=== PATIENT | female | born 2000 | race Caucasian/White ===

== ENCOUNTER 2024-04-12 11:51 | Emergency (ER) | payer MEDICAID, SELFPAY ==
[2024-04-12 11:52] VITALS: BMI 17.8
[2024-04-12 12:01] VITALS: BP 111/64; PULSE 140; RESP 20; TEMP 36.7; O2SAT 99
[2024-04-12 12:02] VITALS: BMI 18.2
--- NOTE | 2024-04-12 12:24 | PC.NURSE ---
poison control called talked to jovan, they recommend ekg, labs, monitor fo r6hr, no charcoal recommended
--- NOTE | 2024-04-12 12:38 | PC.NURSE ---
poison control called, recommended to to basic labs, toxicology, ekg, iv fuids no charcoal, and monitor for 6 hrs
--- NOTE | 2024-04-12 12:40 | XR_ITS ---
Examination: AP chest single view Technique one AP portable upright chest single view Exam date 9: April 12, 2024 1248 hours INDICATIONS: Overdose today with shortness of breath FINDINGS: Normal heart size. No aspiration pneumonia. Osseous structures are intact No pulmonary edema IMPRESSION: Negative for aspiration pneumonia
--- NOTE | 2024-04-12 12:40 | EKG_ITS ---
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
--- NOTE | 2024-04-12 12:40 | PC.NURSE ---
PT STATES THAT SHE IS STILL FEELING SUICIDAL. PT STATES THAT SHE FEELS LIKE THIS ALL DAY AND HAS DONE THINGS TODAY AND IN THE PAST TO TRY TO HURT SELF. PT HAS HISTORY OF CUTTING AND HAS NEW SUPERFICIAL CUTS TO R LEG. OLD HEALED CUTS NOTED TO LEFT LEG AND BILATERAL ARMS. PT SPEECH SLURRED AT THIS TIME BUT SHE IS ABLE TO ANSWER QUESTIONS APPROPRIATELY. PT DOES REPORT DRINKING ALCOHOL TODAY. PT STATES THAT SHE DRINKS 3-12 PACKS OF BEER WEEKLY. PT REPORTS FEELING DEPRESSED DUE TO PAST FAMILY ISSUES BUT DID NOT WANT TO TALK ABOUT IT. NO AUDITORY OR VISUAL HALLUCINATIONS REPORTED. PT DENIES WANTING TO HURT OTHERS. 1 TO 1 SITTER AT BEDSIDE.
[2024-04-12 12:50] LABS: Collection Type, Urine Clean Catch; Squamous Epithelial Cell,Urine 0 /hpf (0-5)
[2024-04-12 12:55] LABS: Bilirubin,Urine Negative (Negative); Blood,Urine Negative (Negative); Clarity,Urine Clear (Clear/Hazy); Color,Urine Colorless (Lt Yel-Yel); Culture Indicated,Urine Not Indicated; Glucose, Urine Negative (Negative); Ketones,Urine Negative (Negative); Leukocyte Esterase,Urine Negative (Negative); Nitrite,Urine Negative (Negative); PH,Urine 6.5 (5.0-7.0); Protein,Urine Negative (Neg - Trace); RBC,Urine 1 /hpf (0-3); Specific Gravity,Urine 1.004 (1.001-1.035); Urobilinogen,Urine Negative mg/dL (0.0-1.0); WBC,Urine < 1 /hpf (0-5)
[2024-04-12] MEDS: ONDANSETRON INJ 2 MG/ML INJ 2 ML 4 MG IV (12:58)
[2024-04-12] MEDS: SODIUM CHLORIDE 0.9% 1000 ML 1,000 ML 999 ML IV ×2 (12:58→14:03)
[2024-04-12 13:00] LABS: Basophils % (Auto) 0 % (0-2.5); Eosinophils # (Auto) 0.2 Thou/mm3 (0.0-0.5); Eosinophils % (Auto) 2 % (0-10); Hematocrit 39.8 % (36.0-46.0); Hemoglobin 13.5 g/dL (12.0-16.0); Immature Granulocytes % (Auto) 0 % (0-0); Immature Granulocytes Auto 0.02 Thou/mm3 (0.00-0.00); Lymphocytes % (Auto) 30 % (10-50); Mean Corpuscular HGB Conc 33.9 g/dl (31.0-37.0); Mean Corpuscular Hemoglobin 31.1 pg (25.0-35.0); Mean Corpuscular Volume 92 fL (80-100); Monocytes # (Auto) 0.5 Thou/mm3 (0.0-0.8); Monocytes % (Auto) 7 % (0-12); Neutrophils # (Auto) 4.1 Thou/mm3 (1.8-7.7); Neutrophils % (Auto) 60 % (37-80); Nucleated Red Blood Cell % 0 /100 WBC (0); Platelet Count 235 Thou/mm3 (140-440); RDW Standard Deviation 44.4 fL (36.4-46.3); Red Blood Count 4.34 Miln/mm3 (4.00-5.20); White Blood Count 6.8 Thou/mm3 (3.6-11.0)
[2024-04-12 13:05] LABS: Amphetamine/Methamp Scrn,U Negative (Negative); Barbiturate Screen,Urine Negative (Negative); Benzodiazepines Screen,Urine Negative (Negative); Benzoylecgonine Screen, Ur Positive (Negative); Fentanyl Screen,Urine Negative (Negative); Opiate Screen,Urine Negative (Negative); THC Screen,Urine Negative (Negative)
--- NOTE | 2024-04-12 13:07 | EDNOTE_ITS ---
ED Overdose RME/HPI General Chief Complaint: Overdose Stated Complaint: OVERDOSE ON SEROQUEL Time Seen by Provider: 04/12/24 12:01 Arrival date/time: 04/12/24 11:51 RME / HPI RME / HPI Narrative: This section includes all my notes and documentations, including HPI, PE, and ED course.? Bishop Suh MD HPI: 23 year old female presents to the ED brought in by mother for evaluation of overdose today. Patient reports taking 10-15 25mg Seroquel pills in addition to using cocaine and drinking alcohol. Admits to overdosing with intention of killing self. Time of ingestion unknown. Can't obtain history from the patient due to decreased mental status. ROS: Can't obtain from the patient due to decreased mental status. Physical Exam: General: Severely lethargic. Eyes:? Conjunctivae and lids clear.? EOMI. PERRL. ENT:? No nasal congestion.??Patent airway. Neck:? Supple.? Heart:? RRR.? Lungs:? No respiratory distress.? Good air movement.? No rhonchi, wheezing, rales.?? Abdomen:? Soft and nontender.?? Legs:? No clubbing, cyanosis, edema.? Skin:? Warm and dry.?? Neuro: Cranial nerves II to XII grossly normal. No peripheral motor deficits. I reviewed all diagnostic test results. My interpretation of the EKG is?sinus rhythm with no acute ST?T changes. My interpretation of the chest x-ray is no acute findings. Blood tests and urine tests?remarkable for serum alcohol 278.3 and positive UDS for cocaine. At this point, diagnoses include?Seroquel overdose and suicide attempt and alcohol and cocaine intoxication. Treatment here included?Zofran and IV fluid. At 6 PM on 04/12/2024, the care of the patient was transferred to Dr. Chaudhry. Bishop Suh MD Related Data Previous Rx's ?Medication ?Instructions ?Recorded ibuprofen 600 mg tablet 1 tab PO Q8HR PRN INFLAMMATION #30 08/12/16 tabs Allergies Allergy/AdvReac Type Severity Reaction Status Date / Time No Known Allergies Allergy Verified 03/19/23 16:16 Course Quality Measures none Orders Category Date Time Status EKG (ED ONLY) *Do not use* NOW Care 04/12/24 12:40 Completed Saline [Insert IV] NOW Care 04/12/24 12:39 Active Straight [In and Out Catheter] X1 Care 04/12/24 12:39 Completed EKG (ED Only) Stat Exams 04/12/24 12:40 Draft XR chest 1V portable Stat Exams 04/12/24 12:40 Completed Acetaminophen Stat Lab 04/12/24 12:48 Completed Alcohol, Blood Medical Stat Lab 04/12/24 12:48 Completed CBC Stat Lab 04/12/24 12:48 Completed CMP [Comprehensive Metabolic Panel] Stat Lab 04/12/24 12:48 Completed Drug Screen,Urine Stat Lab 04/12/24 12:44 Completed HCG,Qualitative Serum Stat Lab 04/12/24 12:48 Completed Magnesium Stat Lab 04/12/24 12:48 Completed Salicylate Stat Lab 04/12/24 12:48 Completed Troponin I Stat Lab 04/12/24 12:48 Completed UA, C/S IF [Urinalysis, C/S if Indicated] Stat Lab 04/12/24 12:44 Completed Ondansetron Inj [Zofran Inj] Med 04/12/24 12:39 Discontinued 4 mg IV X1 ONE Sodium Chloride 0.9% 1000 ml [Ns] 1,000 ml Med 04/12/24 12:39 Discontinued IV 999 mls/hr Sodium Chloride 0.9% 1000 ml [Ns] 1,000 ml Med 04/12/24 13:49 Discontinued IV 999 mls/hr Vital Signs Vital signs: Vital Signs Temperature 98.0 F 04/12/24 12:01 Pulse Rate 140 H 04/12/24 12:01 Respiratory Rate 20 04/12/24 12:01 Blood Pressure 111/64 04/12/24 12:01 Pulse Oximetry (%) 99 04/12/24 12:01 Oxygen Delivery Method Room Air 04/12/24 12:01 Overdose Patient data External records reviewed:: [facility] previous records Clinical information provided by:: patient and parent Social determinants that could affect healthcare access:: substance use Patient has the following chronic illnesses:: Substance abuse How is presenting disease/condition affected by chronic disease/condition?: exacerbated by Evaluation data The following diagnostics were reviewed and interpreted by me:: lab results, radiology exam(s) and EKG tracing(s) (My interpretation of the EKG: Sinus tachycardia (106 bpm) with no ST-T changes. Bishop Suh MD) Lab and/or radiology exams considered but not ordered:: None Interpretation Summary: Seroquel overdose and alcohol and cocaine intoxication Medications / Prescriptions Medications or Prescriptions considered but not ordered:: None Medication administrations:: Medication Administration History Discontinued Medications Sodium Chloride (Ns) 1,000 mls @ 999 mls/hr IV .Q1H1M ONE Stop: 04/12/24 13:39 Last Infusion: 04/12/24 14:02 Dose: Infused Documented By: Admin: 04/12/24 12:58 Dose: 999 mls/hr Documented By: BRENTON Sodium Chloride (Ns) 1,000 mls @ 999 mls/hr IV .Q1H1M ONE Stop: 04/12/24 14:49 Last Infusion: 04/12/24 16:00 Dose: Infused Documented By: Admin: 04/12/24 14:03 Dose: 999 mls/hr Documented By: BHAVESH Ondansetron HCl (Ondansetron Inj 2 Mg/Ml Inj 2 Ml) 4 mg IV X1 ONE; Protocol Stop: 04/12/24 12:40 Last Admin: 04/12/24 12:58 Dose: 4 mg Documented By: BRENTON IV fluid and Zofran Consultations Consultation(s) initiated? (list below): No Diagnosis Overdose Differential Diagnosis: cocaine intoxication, suicide attempt by multiple drug overdose, poisoning by opiate or related narcotic, drug overdose, acetaminophen overdose and accidental drug ingestion Most likely diagnosis given after review of the tests above:: Seroquel overdose and alcohol and cocaine intoxication Admission Indicated Admission indicated?: not indicated Explain why admission is indicated or not indicated:: Psychiatric service not available here Admission Request Was there a request for admission?: No Disposition Plan Disposition Plan: other (specify) (Care of the patient transferred to Dr. Chaudhry) Discharge Plan Prescriptions/Referrals Prescriptions/Med Rec: No Action ibuprofen 600 MG tablet 1 tab PO Q8HR PRN (Reason: INFLAMMATION) Qty: 30 0RF Referrals: Weston Teixeira MD [Primary Care Provider] - In 1 week Problem List Clinical Impression: Overdose, Suicide attempt, Alcohol intoxication, Cocaine abuse Patient/Caregiver Discharge Instructions Print Language: Latvian
[2024-04-12 13:36] LABS: Acetaminophen < 2.0 mcg/mL (10.0-20.0); Alanine Aminotransferase 15 U/L (10-49); Albumin, Serum 5.2 gm/dL (3.5-5.0); Albumin/Globulin Ratio 1.8 (1.2-2.2); Alcohol, Blood Medical 278.3 mg/dL (0-10.0); Alkaline Phosphatase 104 U/L (46-116); Anion Gap 12 (7-16); Aspartate Amino Transferase 21 U/L (0-34); BUN/Creatinine Ratio 8 Ratio (12-20); Bilirubin,Total 0.6 mg/dL (0.3-1.2); Blood Urea Nitrogen 5 mg/dL (9-23); Calcium 9.7 mg/dL (8.3-10.6); Calcium (Corrected) 9.7 mg/dL (8.5-10.1); Carbon Dioxide 27.4 mMol/L (20.0-31.0); Chloride 104 mMol/L (98-107); Creatinine (Component) 0.6 mg/dL (0.6-1.3); Estimated Creatinine Clearance 125.3 mL/min (>60); Globulin 2.9 gm/dL (2.3-3.5); Glucose 97 mg/dL (74-106); Magnesium 2.2 mg/dL (1.6-2.6); Osmolality,Calculated 282 (275-295); Potassium 3.6 mMol/L (3.4-5.1); Salicylate < 3.0 mg/dL; Sodium 143 mMol/L (136-145); Total Protein 8.1 gm/dL (5.7-8.2); Troponin I < 0.002 ng/mL (0.0-0.045); eGFR > 60 See Note
[2024-04-12 13:49] LABS: HCG,Qualitative Serum Negative
[2024-04-12 14:00] VITALS: BP 112/68; PULSE 98; RESP 13; TEMP 36.7; O2SAT 100
--- NOTE | 2024-04-12 15:08 | PC.NURSE ---
spoke with Vi from poison control. update given. per Vi pt is cleared on their end. Vi recommends to continue to monitor pt till she is at her baseline.
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
--- NOTE | 2024-04-12 16:30 | PC.NURSE ---
PT REQUESTING FOOD. PT GIVEN FOOD AT THIS TIME.
[2024-04-12 17:16] VITALS: BP 128/69; PULSE 112; RESP 18; TEMP 36.6; O2SAT 100
[2024-04-12 18:57] VITALS: BP 126/51; PULSE 100; RESP 10; O2SAT 100
--- NOTE | 2024-04-12 19:00 | PC.NURSE ---
Previous shift left all patient belongings in room. Sitter took all belongings and placed them in locker.
[2024-04-12 20:00] VITALS: BP 102/64; PULSE 101; RESP 17; O2SAT 100
[2024-04-12 21:46] VITALS: BP 114/55; PULSE 108; RESP 18; O2SAT 96
--- NOTE | 2024-04-12 23:17 | PD.EDADDENDU ---
Emergency Room Addendum Addendum Narrative: 1800: Care assumed from Dr. Suh the previous shift emergency physician. Past medical, surgical, social and family history reviewed. Vitals and home medications reviewed. Results and treatment plan discussed. I will assume the care of the patient at this time and will follow the patient, pending crisis evaluation. Please refer to the emergency department record for history and examination from initial visit. Patient was placed in observation for treatment and monitoring of psychiatric symptoms, at 1800 04/12/2024. Symptoms consist of suicidal ideation and depression. Treatment plan includes psychiatric consult, reassessments, and possible placement into psychiatric facility. The patient had access and provided personal hygiene, shower, food, water, and daily medications. 0600: Care signed out to Dr. Suh (emergency physician). Past medical, surgical, social and family history reviewed. Vitals and home medications reviewed. Results and treatment plan discussed. They will assume the care of the patient at this time and will follow the patient, pending crisis evaluation. At this time, observation has ended.
[2024-04-13] VITALS: BP 95/51; PULSE 95; RESP 19; O2SAT 96
[2024-04-13 02:00] VITALS: BP 95/47; PULSE 82; RESP 18; O2SAT 97
[2024-04-13 04:00] VITALS: BP 119/71; PULSE 84; RESP 18; TEMP 36.7; O2SAT 99
[2024-04-13 06:00] VITALS: BP 108/55; PULSE 79; RESP 18; TEMP 36.8; O2SAT 99
--- NOTE | 2024-04-13 07:04 | PD.EDADDENDU ---
Emergency Room Addendum <Britt Lizarraga - Last Filed: 04/13/24 08:43> Addendum Narrative: At 6 AM on 04/13/2024, the care of the patient was transferred from Dr. Chaudhry, see his notes for complete H&P and ED course. I reviewed all diagnostic test results: My interpretation of the EKG is My interpretation of the chest x-ray is Blood tests and urine tests At this point, diagnoses include Treatment here included Significant improvement 0758: Crisis team has evaluated the patient and placed her on a 5150 hold, at this time pending placement to [facility] facility. 0840: Patient has been accepted by Dr. Burrell at [facility]. Bishop Suh MD <Bishop Suh MD - Last Filed: 04/20/24 13:42> Addendum Narrative: At 6 AM on 04/13/2024, the care of the patient was transferred from Dr. Chaudhry, see previous-notes for complete H&P and ED course. 0758: Crisis team evaluated the patient and placed her on a 5150 hold, at this time pending placement to [facility] facility. 0840: Patient accepted by Dr. Burrell at [facility]. Bishop Suh MD
[2024-04-13 07:45] LABS: Alcohol, Blood Medical < 3.0 mg/dL (0-10.0)
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
--- NOTE | 2024-04-13 08:31 | PC.CC ---
Joleen with [facility] provided accepting information, Dr. Burrell, [facility]. Dr. Suh, Nehemias Adame, and WELLINGTON Hoang were provided with discharge plan of patient going to [facility]. ASW arranging transportation.
[2024-04-13 10:00] VITALS: BP 118/22; PULSE 72; RESP 16; TEMP 36.3; O2SAT 100
== END 2024-04-13 12:02 ==
PROVIDERS: Emergency Provider Emergency Medicine; PCP Family Medicine
DX: T43.592A Poisoning by other antipsychotics and neuroleptics, intentional self-harm, initial encounter (principal); F14.10 Cocaine abuse, uncomplicated; F10.129 Alcohol abuse with intoxication, unspecified
CPT/HCPCS: 36415; 71045; 80053; 80307; 80320; 80329; 81001; 83735; 84484; 84703; 85025; 90839; 93005; 96127; 96361; 96374; 99285; J2405; J7030; G0480

== ENCOUNTER 2024-10-12 15:31 | Emergency (ER) | payer MEDICAID, SELFPAY ==
[2024-10-12 15:50] VITALS: BP 119/81; PULSE 84; RESP 18; TEMP 36.9; O2SAT 96; BMI 25.9
--- NOTE | 2024-10-12 16:06 | PD.EDWOUND ---
ED Wound/Laceration-RME/HPI General Chief Complaint: Wound Recheck / Suture Removal Stated Complaint: Incision to right arm and right leg infected Source: patient Arrival date/time: 10/12/24 15:31 24-year-old female with no known medical history presents to the emergency room with a chief complaint of a wound to her right leg. Patient was recently seen at [facility] and discharged had sutures to her right leg. The patient remove the sutures but now states there is discharge, Redness and tenderness. Mode of arrival: ambulatory Limitations: no limitations Related Data Previous Rx's ?Medication ?Instructions ?Recorded ibuprofen 600 mg tablet 1 tab PO Q8HR PRN INFLAMMATION #30 08/12/16 tabs sulfamethoxazole 800 1 tab PO BID #14 tabs 10/12/24 mg-trimethoprim 160 mg tablet (Bactrim DS) Allergies Allergy/AdvReac Type Severity Reaction Status Date / Time No Known Allergies Allergy Verified 10/12/24 15:38 Review of Systems Review of Systems Systems Reviewed: All systems reviewed, normal except as documented Constitutional Constitutional: Reports system reviewed and no additional complaints, except as documented, Denies fatigue, Denies fever(s), Denies headache(s) and Denies weakness Eyes Eyes: Reports system reviewed and no additional complaints, except as documented, Denies blurry vision and Denies change in vision ENT Ears, Nose, Mouth, and Throat: Reports system reviewed and no additional complaints, except as documented, Denies otalgia, Denies headache(s), Denies nasal congestion, Denies throat swelling and Denies vertigo Cardiovascular Cardiovascular: Reports system reviewed and no additional complaints, except as documented, Denies chest pain, Denies dyspnea and Denies dyspnea on exertion Respiratory Respiratory: Reports system reviewed and no additional complaints, except as documented, Denies chest congestion, Denies cough, Denies dyspnea, Denies dyspnea on exertion and Denies wheezing Gastrointestinal Gastrointestinal: Reports system reviewed and no additional complaints, except as documented, Denies abdominal pain, Denies cramping, Denies nausea and Denies vomiting Genitourinary Genitourinary: Reports system reviewed and no additional complaints, except as documented Musculoskeletal Musculoskeletal: Reports system reviewed and no additional complaints, except as documented and Denies back pain Integumentary/Breasts Skin/Breast: Reports system reviewed and no additional complaints, except as documented and Reports wounds Neurologic Neurologic: Reports system reviewed and no additional complaints, except as documented, Denies confusion, Denies headache(s), Denies lack of coordination, Denies vertigo and Denies weakness Psychiatric Psychiatric: Reports system reviewed and no additional complaints, except as documented, Denies anxiety, Denies confusion, Denies depression, Denies paranoia, Denies suicidal ideation and Denies tactile hallucinations Endocrine Endocrine: Reports system reviewed and no additional complaints, except as documented and Denies fatigue Hematologic/Lymphatic Hematologic/Lymphatic: Reports system reviewed and no additional complaints, except as documented and Denies lymphadenopathy Allergic/Immunologic Allergic/Immunologic: Reports system reviewed and no additional complaints, except as documented, Denies throat swelling, Denies urticaria and Denies wheezing Past Medical History Past Medical History CARDIAC: Negative Cardiac Disorders or Congestive Heart Failure RESPIRATORY: Negative Chronic Obstructive Pulmonary Disease (COPD) or Asthma GENITOURINARY: Negative Renal Disease ENDOCRINE: Negative Diabetes Mellitus Type 1 or Diabetes Mellitus Type 2 HEMATOLOGIC: Negative Sickle Cell Disease Social History SMOKING STATUS: Current every day smoker ED Exam General Limitations: Present no limitations General appearance: Present alert and in no apparent distress Head Head exam: Present atraumatic Eye Eye exam: Present normal appearance, PERRL and EOMI ENT ENT exam: Present normal exam, normal oropharynx and mucous membranes moist Neck Neck exam: Present normal inspection, full ROM and trachea midline Chest Chest inspection: Present normal inspection and symmetric chest wall rise Respiratory Respiratory exam: Present normal lung sounds bilaterally Cardiovascular Cardiovascular exam: Present regular rate, normal rhythm and normal heart sounds Abdominal Exam Abdominal exam: Present soft and normal bowel sounds Extremities Exam Extremities exam: Present normal inspection and full ROM Expanded Lower Extremity Exam Hip/Pelvis exam: Present normal inspection Upper leg exam: Present normal inspection Leg image:  1. Tenderness erythema swelling and warmth to the touch Knee exam: Present normal inspection Lower leg exam: Present tenderness, laceration and erythema Back Exam Back exam: Present normal inspection and full ROM Neurological Exam Neurological exam: Present alert, oriented X3 and CN II-XII intact Psychiatric Psychiatric exam: Present normal affect and normal mood Skin Skin exam: Present warm, dry, intact and normal color Course Quality Measures none Vital Signs Vital signs: Vital Signs Temperature 98.4 F 10/12/24 15:50 Pulse Rate 84 10/12/24 15:50 Respiratory Rate 18 10/12/24 15:50 Blood Pressure 119/81 10/12/24 15:50 Pulse Oximetry (%) 96 10/12/24 15:50 Oxygen Delivery Method Room Air 10/12/24 15:50 Wound / Laceration MDM Narrative MDM Narrative:: 24-year-old female with no known medical history presents to the emergency room with a chief complaint of a wound to her right leg. Patient was recently seen at [facility] and discharged had sutures to her right leg. The patient remove the sutures but now states there is discharge, Redness and tenderness. Patient is hemodynamically stable and in no apparent distress. She is not tachycardic and not tachypneic and is afebrile Physical examination shows cellulitis to the right leg. Patient states she had sutures placed due to a laceration. The patient removed her own sutures. Today the patient has erythema, swelling, tenderness, drainage from the old laceration site. Antibiotics were sent to the patient's pharmacy Patient was discharged and educated to follow-up with primary care provider in the next 24 to 48 hours and return to the emergency room for any evidence of worsening signs or symptoms Patient data External records reviewed:: [facility] previous records Clinical information provided by:: patient Social determinants that could affect healthcare access:: none Patient has the following chronic illnesses:: No chronic illness How is presenting disease/condition affected by chronic disease/condition?: no chronic disease Evaluation data The following diagnostics were reviewed and interpreted by me:: lab results and radiology exam(s) Lab and/or radiology exams considered but not ordered:: Labs and radiology exams considered and ordered Interpretation Summary: N/A Medications / Prescriptions Medications or Prescriptions considered but not ordered:: Medication given Medication administrations:: Rx given Consultations Consultation(s) initiated? (list below): No Diagnosis Wound Differential Diagnosis: laceration, abscess, abrasion and other (Cellulitis) Most likely diagnosis given after review of the tests above:: Cellulitis Admission Indicated Admission indicated?: not indicated Admission Request Was there a request for admission?: No Disposition Plan Disposition Plan: Discharge Discharge Attestation Discharge Attestation: The patient and all family members were given an opportunity to ask questions and understood the discharge instructions. Discharge instructions specifically effects, indications for sooner follow up or return to the emergency department, and the expected course of current diagnosis. Patient condition: Stable Discharge Plan Plan Patient Disposition: HOME (Self Care) Discharge Disposition comment: Stable Prescriptions/Referrals Prescriptions/Med Rec: New sulfamethoxazole-trimethoprim [Bactrim DS] 800-160 mg tablet 1 tab PO BID Qty: 14 0RF No Action ibuprofen 600 MG tablet 1 tab PO Q8HR PRN (Reason: INFLAMMATION) Qty: 30 0RF Problem List Clinical Impression: Infection involving suture Patient/Caregiver Discharge Instructions Education Materials: Preventing Surgical Site Infections Additional Instructions: Please follow-up with your primary care provider in the next 24 to 48 hours Antibiotics are sent to your pharmacy please pick them up and take them as indicated For any evidence of worsening signs or symptoms return to the emergency room immediately Print Language: Indonesian Stand Alone Forms: Rashida Award Info., Patient Portal Info Letter PA/[employer] M[employer] OPERATOR Supervising Physician PA/MAGNESI[employer] M[employer] OPERATOR Supervising Physician: Dr. Dotson
== END 2024-10-12 16:20 | disposition home or self-care (01) ==
LOC: SERX 16:21
PROVIDERS: Emergency Provider Emergency Medicine; PCP Physician Assistant Medical
DX: T81.41XA Infection following a procedure, superficial incisional surgical site, initial encounter (principal); B99.8 Other infectious disease
CPT/HCPCS: 99283

== ENCOUNTER 2024-10-24 12:57 | Emergency (ER) | payer MEDICAID, SELFPAY ==
[2024-10-24 12:57] VITALS: BMI 25.8
[2024-10-24 13:04] VITALS: BP 134/87; PULSE 80; RESP 18; TEMP 36.5; O2SAT 98
--- NOTE | 2024-10-24 14:13 | EDNOTE_ITS ---
ED General RME/HPI General Chief complaint: General Adult/Misc Complain Stated complaint: STEPPED ON NAIL 8 DAYS AGO; JAW IS LOCKING UP Time Seen by Provider: 10/24/24 14:11 Arrival date/time: 10/24/24 12:57 Limitations: no limitations RME / HPI RME / HPI narrative: Patient is a 24-year-old female who is here today with jaw soreness. She denies any impact injury to her face. She states she stepped on a nail about a week ago. She denies any chronic medical conditions. She has no redness or swelling on her foot. Stepped on a nail 4-5 days ago. Has mild jaw soreness. She has no fevers or chills. No chest pain, Juan Francisco pain, nausea, vomiting. No myalgias. She has no other acute complaints. Related Data Previous Rx's ?Medication ?Instructions ?Recorded ibuprofen 600 mg tablet 1 tab PO Q8HR PRN INFLAMMATI ON #30 08/12/16 tabs sulfamethoxazole 800 1 tab PO BID #14 tabs mg-trimethoprim 160 mg tablet (Bactrim DS) naproxen 500 mg tablet 500 mg PO BID #10 tabs 10/24 Allergies Allergy/AdvReac Type Severity Reaction Status Date / Time No Known Allergies Allergy Verified 10/24/24 13:00 Review of Systems Review of Systems Systems Reviewed: All systems reviewed, normal except as documented ED Exam General Limitations: Present no limitations General appearance: Present alert and in no apparent distress Head Head exam: Present atraumatic Eye Eye exam: Present normal appearance, PERRL and EOMI ENT ENT exam: Present normal exam, normal oropharynx, mucous membranes moist and other (No tenderness of the TMJ or crepitus. Patient can open her jaw fully puller there is no trismus.) Neck Neck exam: Present normal inspection, full ROM and trachea midline Chest Chest inspection: Present normal inspection and symmetric chest wall rise Respiratory Respiratory exam: Present normal lung sounds bilaterally Cardiovascular Cardiovascular exam: Present regular rate, normal rhythm and normal heart sounds Extremities Exam Extremities exam: Present normal inspection and full ROM Back Exam Back exam: Present normal inspection and full ROM Neurological Exam Neurological exam: Present alert and oriented X3 Psychiatric Psychiatric exam: Present normal affect and normal mood Skin Skin exam: Present warm, dry, intact, normal color and other (No puncture wounds, erythema, induration, or fluctuance is appreciated.) Course Quality Measures none Orders Category Date Time Status TET,DIP/PERT AC (Adult)-Tdap [Boostrix Adult (Tdap) Med 10/24/24 14:12 Discontinued Vacc] 0.5 ml IMI .ONCE ONE Vital Signs Vital signs: Vital Signs Temperature 97.7 F 10/24/24 13:04 Pulse Rate 80 10/24/24 13:04 Respiratory Rate 18 10/24/24 13:04 Blood Pressure 134/87 H 10/24/24 13:04 Pulse Oximetry (%) 98 10/24/24 13:04 Oxygen Delivery Method Room Air 10/24/24 13:04 Discharge Plan Plan Patient Disposition: HOME (Self Care) Patient condition on transfer: Stable Prescriptions/Referrals Prescriptions/Med Rec: New naproxen 500 mg tablet 500 mg PO BID Qty: 10 0RF No Action ibuprofen 600 MG tablet 1 tab PO Q8HR PRN (Reason: INFLAMMATION) Qty: 30 0RF sulfamethoxazole-trimethoprim [Bactrim DS] 800-160 mg tablet 1 tab PO BID Qty: 14 0RF Problem List Clinical Impression: Jaw pain, non-TMJ Patient/Caregiver Discharge Instructions Education Materials: Medicine for Pain Additional Instructions: - Use naproxen twice daily as prescribed. - Follow-up with your primary clinic within the next 1 to 2 weeks. - Return to the emergency room as needed for any worsening or emergent changes. Print Language: Mexican Stand Alone Forms: [employer] Award Info., Patient Portal Info Letter MDM Narrative [facility] hospital course: Patient is a 24-year-old female who is here today with jaw soreness. She denies any impact injury to her face. She states she stepped on a nail about a week ago. She denies any chronic medical conditions. She has no redness or swelling on her foot. Stepped on a nail 4-5 days ago. Has mild jaw soreness. She has no fevers or chills. No chest pain, Juan Francisco pain, nausea, vomiting. No myalgias. She has no other acute complaints. On exam, patient is nontoxic-appearing no visible signs distress. Vital signs are stable. Examination of the plantar surface of the bilateral feet revealed no open wounds, induration, or fluctuance. Patient has full range of motion of her jaw and is speaking without difficulty. She does not recall her last tetanus shot. Her tetanus will be updated here. She will place on a 5-day course of naproxen. She is asked to follow-up with her primary doctor. Return here as needed for any worsening changes. Clinical Information Provided by patient Medical Records Reviewed None Meds/Rx Considered, not Ordered None Labs/Rad/Tests considered, not Ordered None Chronic Illness/Social Conditions which may negatively complicate care or outcome(s)-explain: None or not applicable Lab Interpretation Labs: none Imaging Imaging interpretation: none Medication Administration(s) Medication Administration History Discontinued Medications Diphtheria/Tetanus/Acell Pertussis (Diphth,Pertuss(Acell),Tet Vac 0.5 Ml Syr- Adult) 0.5 ml IMi .ONCE ONE Stop: 10/24/24 14:13 See above Dispositon Disposition: Discharge Home
[2024-10-24] MEDS: DIPHTH,PERTUSS(ACELL),TET VAC 0.5 ML SYR- ADULT IMi (14:30)
== END 2024-10-24 14:47 | disposition home or self-care (01) ==
LOC: SERX 15:10
PROVIDERS: Emergency Provider Physician Assistant Medical
DX: R68.84 Jaw pain (principal); Z23 Encounter for immunization
CPT/HCPCS: 90471; 90715; 99282

== ENCOUNTER 2025-03-01 07:21 | Emergency (ER) | payer MEDICAID, SELFPAY ==
[2025-03-01 07:22] VITALS: BMI 25.8
[2025-03-01 07:54] VITALS: BP 130/68; PULSE 120; RESP 18; TEMP 37.5; O2SAT 98
--- NOTE | 2025-03-01 07:54 | XR_ITS ---
EXAMINATION: AP chest single view TECHNIQUE: AP portable upright chest single view Date and time: March 01, 2025, 0840 hours INDICATIONS: Cardiac palpitations and vomiting blood beginning 3 days ago FINDINGS: Normal heart size No aspiration pneumonia Osseous structures are intact No pulmonary edema IMPRESSION: No active disease
--- NOTE | 2025-03-01 07:54 | EKG_ITS ---
[facility] Test Date: 2025-03-01 Pat Name: SOCO SANTOS Department: Room: - Gender: Female Resort Host: : [id number] Requested By: Marco Madrid Order Number: [id number] Reading MD: Marco Madrid Measurements Intervals Roby Rate: 120 P: -55 HI: 141 QRS: 87 QRSD: 88 T: 57 QT: 307 QTc: 434 Interpretive Statements ECTOPIC ATRIAL TACHYCARDIA ABNORMAL RHYTHM ECG Compared to ECG 04/12/2024 13:22:14 Sinus tachycardia no longer present /store/S0/[id number]/[id number].pdf
--- NOTE | 2025-03-01 07:55 | PD.EDRME ---
Rapid Medical Screening Exam RME Arrival date/time: 03/01/25 07:21 24-year-old female with no known medical history presents to the emergency room with a chief complaint of palpitations, and vomiting blood x 3 days. Patient states she is currently withdrawing from alcohol. Patient states she drinks about 1/5 of a bottle of vodka a day. Patient states her last alcoholic drink was 4 hours ago. I have greeted and performed a focused initial assessment of this patient. A comprehensive ED assessment and evaluation of the patient, analysis of all test results, and completion of the medical decision making process will be conducted by additional ED providers. Chief Complaint: Alcohol Time Seen by Provider: 03/01/25 07:31 Vital signs reviewed by provider: Yes Exam: Strong and regular rhythm. S1 and S2 no JVD no murmurs no gallops no clicks Clear bilateral lung sounds Clinical Impression: Alcohol withdrawals/electrolyte imbalance/upper GI bleed
[2025-03-01 08:18] VITALS: BP 142/88; PULSE 108; RESP 15; TEMP 37.2; O2SAT 99
--- NOTE | 2025-03-01 08:40 | PD.EDALCOH ---
ED Alcohol RME/HPI General Chief Complaint: Alcohol Stated Complaint: ALCOHOL WITHDRAWAL/VOMITING BLOOD Time Seen by Provider: 03/01/25 07:31 Arrival date/time: 03/01/25 07:21 Limitations: no limitations RME / HPI RME / HPI narrative: 03/01/25 07:21 24-year-old female with no known medical history presents to the emergency room with a chief complaint of palpitations, and vomiting blood x 3 days. Patient states she is currently withdrawing from alcohol. Patient states she drinks about 1/5 of a bottle of vodka a day. Patient states her last alcoholic drink was 4 hours ago. I have greeted and performed a focused initial assessment of this patient. A comprehensive ED assessment and evaluation of the patient, analysis of all test results, and completion of the medical decision making process will be conducted by additional ED providers. DR. MICHELE MAIN ED EVALUATION: 24 year old female with history of bipolar disorder on Seroquel, alcoholism, drinks both beer and a fifth of vodka daily, presents to the ED for evaluation of feeling shaky, nausea, and vomiting beginning 4 days ago. Today noticed the vomit to be a dark brown material which concerned her. Admits to last drinking alcohol 3 hours prior to arrival. No associated diarrhea. Social hx: +cocaine use, +alcohol use Exam: Strong and regular rhythm. S1 and S2 no JVD no murmurs no gallops no clicks Clear bilateral lung sounds Impression: Alcohol withdrawals/electrolyte imbalance/upper GI bleed Related Data Previous Rx's ?Medication ?Instructions ?Recorded ibuprofen 600 mg tablet 1 tab PO Q8HR PRN INFLAMMATION #30 08/12/16 tabs sulfamethoxazole 800 1 tab PO BID #14 tabs 10/12/24 mg-trimethoprim 160 mg tablet (Bactrim DS) naproxen 500 mg tablet 500 mg PO BID #10 tabs 10/24/24 chlordiazepoxide HCl 25 mg capsule 25 mg PO Q8H PRN agitation #18 caps 03/01/25 chlordiazepoxide HCl 25 mg capsule 25 mg PO Q8H PRN alcohol 03/01/25 withdrawal #14 caps ondansetron HCl 4 mg tablet 4 mg PO Q8H 5 days #20 tabs 03/01/25 pantoprazole 40 mg tablet,delayed 40 mg PO QDAY #30 tabs 03/01/25 release (Protonix) Allergies Allergy/AdvReac Type Severity Reaction Status Date / Time No Known Allergies Allergy Verified 03/01/25 07:25 Review of Systems Review of Systems Systems Reviewed: All systems reviewed, normal except as documented Past Medical History Past Medical History RESPIRATORY: Positive Asthma PSYCHO/SOCIAL: Positive Bipolar Disorder Social History SMOKING STATUS: Current every day smoker ED Exam General Limitations: Present no limitations General appearance: Present alert and in no apparent distress Head Head exam: Present atraumatic, normocephalic and normal inspection Eye Eye exam: Present normal appearance, PERRL and EOMI ENT ENT exam: Present normal exam, normal oropharynx and mucous membranes moist Neck Neck exam: Present normal inspection, full ROM and trachea midline Chest Chest inspection: Present normal inspection and symmetric chest wall rise Respiratory Respiratory exam: Present normal lung sounds bilaterally Cardiovascular Cardiovascular exam: Present regular rate, normal rhythm and normal heart sounds Abdominal Exam Abdominal exam: Present soft and normal bowel sounds Extremities Exam Extremities exam: Present full ROM and other (Patient has scars on her upper extremities from previous suicide attempts ) Back Exam Back exam: Present normal inspection and full ROM Neurological Exam Neurological exam: Present alert, oriented X3 and CN II-XII intact Psychiatric Psychiatric exam: Present normal affect and normal mood Skin Skin exam: Present warm, dry, intact and normal color Course Course Course Narrative: Patient labs came back unremarkable CAT scan of the abdomen pelvis showed no evidence of GI bleed Patient did not have any vomiting during her stay in the ER She had no black stools Was no evidence of active GI bleeding Patient was given phenobarb 10 mg IV Patient had no major side effects or withdrawal symptoms during stay in the ER She does not qualify for admission However she said that she would stop drinking I asked her to call her mother to pick her up and she will be given prescription for the Librium Her CAT scan only showed presence of gastritis She was given the first dose of Protonix IV x 1 She will be given Protonix also once a day for 1 g each for the next 30 days Also give her Zofran for the nausea and Librium 20 mg 3 times a day as needed Patient was discharged good condition There was no evidence of active GI bleed Vital signs were normal O2 saturation was normal Diagnosis Alcohol gastritis Vomiting Mild to moderate withdrawal symptoms of alcohol Plan As above Quality Measures none Orders Category Date Time Status CT Screening NOW Care 03/01/25 08:[address] Screening NOW Care 03/01/25 10:55 Completed EKG (ED ONLY) *Do not use* NOW Care 03/01/25 07:[address] angio abdomen pelvis Stat Exams 03/01/25 10:54 Completed EKG (ED Only) Stat Exams 03/01/25 07:54 Draft XR chest 1V portable Stat Exams 03/01/25 07:54 Completed Alcohol, Blood Medical Stat Lab 03/01/25 08:27 Completed B-Type Natriuretic Peptide Stat Lab 03/01/25 08:27 Completed Beta HCG,Quantitative Stat Lab 03/01/25 08:27 Completed CBC Stat Lab 03/01/25 08:27 Completed Comprehensive Metabolic Panel Stat Lab 03/01/25 08:27 Completed Drug Screen,Urine Stat Lab 03/01/25 08:24 Completed Free T4 (Free Thyroxine) Stat Lab 03/01/25 08:27 Completed Magnesium Stat Lab 03/01/25 08:27 Completed Partial Thromboplastin Time Stat Lab 03/01/25 08:27 Completed Prothrombin Time with INR Stat Lab 03/01/25 08:27 Completed TSH [Thyroid Stimulating Hormone] Stat Lab 03/01/25 08:27 Completed Troponin I Stat Lab 03/01/25 08:27 Completed Urinalysis, C/S if Indicated Stat Lab 03/01/25 08:24 Completed Dextrose 5%-Lactated Ringers [D5-Lr] 1,000 ml Med 03/01/25 08:36 Discontinued IV 1,000 mls/hr Ondansetron Odt [Zofran Odt] Med 03/01/25 07:54 Discontinued 4 mg PO X1 ONE PHENobarbital Inj 300 mg Med 03/01/25 13:49 Ordered Sodium Chloride 0.9% Flush [NS Flush] 12 ml IVP X1 Pantoprazole Inj [Protonix Inj] Med 03/01/25 13:52 Once 80 mg IVP X1 ONE Reevaluation(s) Time: 13:55 Vital Signs Vital signs: Vital Signs Temperature 99.5 F 03/01/25 07:54 Pulse Rate 120 H 03/01/25 07:54 Respiratory Rate 18 03/01/25 07:54 Blood Pressure 130/68 03/01/25 07:54 Pulse Oximetry (%) 98 03/01/25 07:54 Oxygen Delivery Method Room Air 03/01/25 07:54 Pulse ox is 98% on room air which is adequate. Discharge Plan Plan Patient Disposition: HOME (Self Care) Patient condition on transfer: Stable Prescriptions/Referrals Prescriptions/Med Rec: New pantoprazole [Protonix] 40 mg tablet,delayed release (DR/EC) 40 mg PO QDAY Qty: 30 0RF ondansetron HCl 4 mg tablet 4 mg PO Q8H 5 Days Qty: 20 0RF chlordiazepoxide HCl 25 mg capsule 25 mg PO Q8H PRN (Reason: alcohol withdrawal) Qty: 14 0RF chlordiazepoxide HCl 25 mg capsule 25 mg PO Q8H PRN (Reason: agitation) Qty: 18 0RF No Action ibuprofen 600 MG tablet 1 tab PO Q8HR PRN (Reason: INFLAMMATION) Qty: 30 0RF sulfamethoxazole-trimethoprim [Bactrim DS] 800-160 mg tablet 1 tab PO BID Qty: 14 0RF naproxen 500 mg tablet 500 mg PO BID Qty: 10 0RF Referrals: Caitie Bucio PA-C [Primary Care Provider] - In 1 week Problem List Clinical Impression: Alcohol withdrawal syndrome Patient/Caregiver Discharge Instructions Discharge Activity: resume usual activities Education Materials: Alcohol Withdrawal: What to Expect Print Language: Moroccan Stand Alone Forms: [employer] Award Info., Patient Portal Info Letter Alcohol MDM Narrative MDM Narrative: Britt Brown am scribing for and in the presence of Dr. Michele. 24 year old female with history of bipolar disorder on Seroquel, alcoholism, drinks both beer and a fifth of vodka daily, presents to the ED for evaluation of feeling shaky, nausea, and vomiting beginning 4 days ago. Today noticed the vomit to be a dark brown material which concerned her. Assessment: Suspected alcohol withdrawal Dark brown emesis likely represents gastritis?related material; active GI bleeding is considered though unlikely at this time Risk related to polysubstance use Plan: Phenobarbital for alcohol withdrawal management Zofran IV fluids CT angio of the abdomen to assess for possible bleeding source given reported dark emesis Patient data External records reviewed:: [facility] previous records Clinical information provided by:: patient Social determinants that could affect healthcare access:: alcohol use Patient has the following chronic illnesses:: bipolar disorder on Seroquel, alcoholism, drinks both beer and a fifth of vodka daily How is presenting disease/condition affected by chronic disease/condition?: exacerbated by Evaluation data The following diagnostics were reviewed and interpreted by me:: lab results, radiology exam(s) and EKG tracing(s) (EKG @ 08:05 AM, interpreted by me, atrial tachycardia, rate 120, no acute ST or Twave changes, no STEMI. ) Lab and/or radiology exams considered but not ordered:: None Interpretation Summary: Ordering Physician: Marco Drummond Date of Service: 03/01/25 Procedure(s): XR chest 1V portable Accession Number(s): [id number] cc: Caitie Bucio PA-C; Marco DrummondP; Nba Jarrett MD~ EXAMINATION: AP chest single view TECHNIQUE: AP portable upright chest single view Date and time: March 01, 2025, 0840 hours INDICATIONS: Cardiac palpitations and vomiting blood beginning 3 days ago FINDINGS: Normal heart size No aspiration pneumonia Osseous structures are intact No pulmonary edema IMPRESSION: No active disease Dictated By: Nba Jarrett MD Signed By: <Electronically signed by Nba Jarrett MD in OV> 03/01/25 0916 Medications / Prescriptions Medications or Prescriptions considered but not ordered:: None Medication administrations:: Medication Administration History Phenobarbital Sodium 300 mg/ (Sodium Chloride 12 ml) 0 mg IVP X1 ONE Stop: 03/01/25 13:50 Discontinued Medications Dextrose/Lactated Ringer's (D5-Lr) 1,000 mls @ 1,000 mls/hr IV .Q1H ARYAN Stop: 03/01/25 10:40 Last Admin: 03/01/25 11:52 Dose: Not Given Documented By: EF Non-Admin Reason: Cancelled by Provider Admin: 03/01/25 11:38 Dose: 1,000 mls/hr Documented By: Infusion: 03/01/25 10:20 Dose: Infused Documented By: Admin: 03/01/25 08:57 Dose: 1,000 mls/hr Documented By: EF Ondansetron HCl (Ondansetron Odt 4 Mg Tabrap) 4 mg PO X1 ONE; Protocol Stop: 03/01/25 07:55 Last Admin: 03/01/25 08:57 Dose: 4 mg Documented By: EF See above Consultations Consultation(s) initiated? (list below): Yes Diagnosis Most likely diagnosis given after review of the tests above:: Alcohol withdrawal syndrome Admission Indicated Admission indicated?: indicated Admission Request Was there a request for admission?: Yes Admission Attestation Admission request attestation: Discussed case with [] from Hospitalist service regarding admission. Discussed patients ED course, exam findings, labs, and radiology results. The Hospitalist [agrees,declines] to accept the patient for admission. Disposition Plan Disposition Plan: Discharge Discharge Attestation Discharge Attestation: The patient and all family members were given an opportunity to ask questions and understood the discharge instructions. Discharge instructions specifically effects, indications for sooner follow up or return to the emergency department, and the expected course of current diagnosis. Patient condition: Stable
[2025-03-01 08:46] LABS: Collection Type, Urine Clean Catch
[2025-03-01 08:54] LABS: Basophils # (Auto) 0.1 Thou/mm3 (0.0-0.2); Basophils % (Auto) 1 % (0-2.5); Eosinophils # (Auto) 0.2 Thou/mm3 (0.0-0.5); Eosinophils % (Auto) 2 % (0-10); Hematocrit 43.0 % (36.0-46.0); Hemoglobin 14.6 g/dL (12.0-16.0); Immature Granulocytes Auto 0.04 Thou/mm3 (0.00-0.00); Lymphocytes # (Auto) 2.1 Thou/mm3 (1.0-4.8); Lymphocytes % (Auto) 18 % (10-50); Mean Corpuscular HGB Conc 34.0 g/dl (31.0-37.0); Mean Corpuscular Hemoglobin 31.9 pg (25.0-35.0); Mean Corpuscular Volume 94 fL (80-100); Monocytes # (Auto) 1.1 Thou/mm3 (0.0-0.8); Monocytes % (Auto) 9 % (0-12); Neutrophils # (Auto) 8.5 Thou/mm3 (1.8-7.7); Neutrophils % (Auto) 71 % (37-80); Nucleated Red Blood Cell # 0.00 Thou/mm3 (0.00-0.00); Nucleated Red Blood Cell % 0 /100 WBC (0); Platelet Count 399 Thou/mm3 (140-440); RDW Standard Deviation 44.4 fL (36.4-46.3); Red Blood Count 4.57 Miln/mm3 (4.00-5.20); White Blood Count 12.0 Thou/mm3 (3.6-11.0)
[2025-03-01] MEDS: DEXTROSE 5%-LACTATED RINGERS 1,000 ML 1000 ML IV ×2 (08:57→11:38)
[2025-03-01] MEDS: ONDANSETRON ODT 4 MG TABRAP PO (08:57)
[2025-03-01 09:13] LABS: Alanine Aminotransferase 22 U/L (10-49); Albumin, Serum 5.2 gm/dL (3.5-5.0); Albumin/Globulin Ratio 1.7 (1.2-2.2); Alcohol, Blood Medical 214.4 mg/dL (0-10.0); Alkaline Phosphatase 99 U/L (46-116); Anion Gap 14 (7-16); Aspartate Amino Transferase 31 U/L (0-34); BUN/Creatinine Ratio 8 Ratio (12-20); Bilirubin,Total 0.8 mg/dL (0.3-1.2); Blood Urea Nitrogen 6 mg/dL (9-23); Calcium 9.6 mg/dL (8.3-10.6); Calcium (Corrected) 9.6 mg/dL (8.5-10.1); Carbon Dioxide 24.4 mMol/L (20.0-31.0); Chloride 104 mMol/L (98-107); Creatinine (Component) 0.8 mg/dL (0.6-1.3); Estimated Creatinine Clearance 118.4 mL/min (>60); Free T4 (Free Thyroxine) 1.35 ng/dL (0.89-1.76); Globulin 3.0 gm/dL (2.3-3.5); Glucose 90 mg/dL (74-106); Magnesium 2.2 mg/dL (1.6-2.6); Osmolality,Calculated 280 (275-295); Potassium 4.1 mMol/L (3.4-5.1); Sodium 142 mMol/L (136-145); Thyroid Stimulating Hormone 1.58 uIU/mL (0.55-4.78); Total Protein 8.2 gm/dL (5.7-8.2); Troponin I < 0.002 ng/mL (0.0-0.045); eGFR > 60 See Note
[2025-03-01 09:32] LABS: INR 1.0 (0.9-1.3); Partial Thromboplastin Time 30.6 Seconds (22.0-36.0); Prothrombin Time 10.4 Seconds (9.0-12.2)
[2025-03-01 09:35] VITALS: BP 117/70; PULSE 112; RESP 18; TEMP 37.1; O2SAT 100
[2025-03-01 09:51] LABS: Bilirubin,Urine Negative (Negative); Blood,Urine 2+ (Negative); Clarity,Urine Turbid (Clear/Hazy); Color,Urine Lt-Yellow (Lt Yel-Yel); Culture Indicated,Urine Not Indicated; Glucose, Urine Negative (Negative); Hyaline Casts,Urine < 1 /hpf (0-1); Ketones,Urine 1+ (Negative); Leukocyte Esterase,Urine Negative (Negative); Nitrite,Urine Negative (Negative); PH,Urine 6.0 (5.0-7.0); Protein,Urine Trace (Neg - Trace); RBC,Urine 6 /hpf (0-3); Specific Gravity,Urine 1.013 (1.001-1.035); Squamous Epithelial Cell,Urine 8 /hpf (0-5); Urobilinogen,Urine Negative mg/dL (0.0-1.0); WBC,Urine 4 /hpf (0-5)
[2025-03-01 09:55] LABS: B-Type Natriuretic Peptide < 20 pg/mL (0-100)
[2025-03-01 09:58] LABS: Amphetamine/Methamp Scrn,U Negative (Negative); Barbiturate Screen,Urine Negative (Negative); Benzodiazepines Screen,Urine Negative (Negative); Benzoylecgonine Screen, Ur Positive (Negative); Fentanyl Screen,Urine Negative (Negative); Opiate Screen,Urine Negative (Negative); THC Screen,Urine Negative (Negative)
--- NOTE | 2025-03-01 10:54 | XR_ITS ---
Examination: CTA abdomen, with intravenous contrast. CTA pelvis, with intravenous contrast. 2-D sagittal and coronal reconstructions. 3-D reconstructions. Date and time of exam: February 21, 2025, 12:20 p.m. INDICATIONS: Alcohol withdrawal vomiting blood today COMPARISON: September 03, 2023 CTDI vol (mgy) 13.1 DLP (MGycm) 555 Technique: Multiple CTA images, 2.0 mm slice thickness, obtained, abdomen, pelvis, with the high-resolution 64 slice scanner. 100 cc Isovue-370 is administered intravenously. Sagittal and coronal 2-D reconstructions are obtained. 3-D reconstructions, angiographic images are obtained. 3-D postprocessing, including vascular maximum intensity projections. Low dose protocols were performed. One or more of the following dose reduction techniques were used; automated exposure control, adjustment of the mA and/or KV according to patient size, use of iterative reconstruction technique. Findings: Diffuse fatty infiltration throughout the liver, moderate cardiomegaly, irregular liver contour Gastric mucosa is thickened No gallstones Negative for pancreatitis No renal or ureteral calculi, no hydronephrosis No bowel obstruction Normal appendix No diverticulitis No pelvic mass Urinary bladder intact Intact osseous structures IMPRESSION: Fatty infiltration, moderate hepatomegaly with primary hepatocellular disease Gastritis pattern No abnormal extravasation of contrast material in the gastrointestinal tract
[2025-03-01 11:50] LABS: Beta HCG,Quantitative < 1 mIU/mL (<5.0)
[2025-03-01 13:36] VITALS: BP 128/75; PULSE 97; RESP 17; TEMP 37.1; O2SAT 100
[2025-03-01 14:39] VITALS: BP 136/82; PULSE 99; RESP 18; TEMP 37; O2SAT 100
[2025-03-01] MEDS: METOCLOPRAMIDE INJ 5 MG/ML VIAL 2 ML 10 MG IVP (15:05)
== END 2025-03-01 15:13 | disposition home or self-care (01) ==
PROVIDERS: Nurse Practitioner Family; Emergency Provider Emergency Medicine; PCP Physician Assistant Medical
DX: K29.20 Alcoholic gastritis without bleeding (principal); F10.939 Alcohol use, unspecified with withdrawal, unspecified; I47.19 Other supraventricular tachycardia; Y90.7 Blood alcohol level of 200-239 mg/100 ml
CPT/HCPCS: 36415; 71045; 74174; 80053; 80307; 80320; 81001; 81025; 83735; 83880; 84439; 84443; 84484; 84702; 85025; 85610; 85730; 93005; 96361; 96374; 96375; 99284; A4649; J1200; J2470; J2560; J2765; J7121; Q0162; Q9967; G0480